=== PATIENT | male | born 1960 ===

== ENCOUNTER 2022-03-08 18:59 | Inpatient (IN) | payer OTHER ==
[2022-03-08] MEDS ORDERED: Insulin Regular 300 UNITS/3 ML VIAL ONE (19:13)
[2022-03-08] MEDS ORDERED: Sodium Bicarb 50 MEQ/50 ML VIAL ONE (19:13)
[2022-03-08 19:18] LABS: Analyzer IN Cardio ER; Base Excess (BEa) 0.2 mEq/L (-2.0 to +3.0); CO2 Tension 52.3 mmHg (35.0-45.0); Calcium, Ionized (arterial) 1.21 mmol/L (1.12-1.30); Carboxyhemoglobin (COHb) 0.1 gm% (0.0-3.0); Hemoglobin (Hb) 14.2 g/dL (14.0-18.0); O2 Tension (PaO2), arterial 83.4 mmHg (> 80.0); Potassium - ABG Lab 5.79 mmol/L (3.70-5.30); Puncture Site LBR; pH, Arterial 7.33 (7.35-7.45)
[2022-03-08 19:19] LABS: ALV-art Gradient 79.385 mmHg (0-20)
[2022-03-08 19:26] LABS: #Eosinphils 0.1 thou/uL (0.0-0.7); #Lymphocytes 1.2 thou/uL (1.20-3.40); #Neutrophils 10.4 thou/uL (1.40-6.50); %Basophils 0.3 % (0.0-1.0); %Eosinophils 0.7 % (0.0-10.0); %Lymphocytes 9.7 % (21.0-51.0); %Monocytes 7.9 % (0.0-10.0); %Neutrophils 81.4 % (42.0-75.0); Hemoglobin 13.8 g/dL (14.0-18.0); Mean Corpuscular Hemoglobin 33.1 pg (27.0-31.0); Mean Platelet Volume 7.4 fL (7.4-10.4); Platelet Count 187 thou/uL (130-400); RBC Distribution Width 12.5 % (11.5-14.5); Red Blood Cell (RBC) Count 4.17 mill/uL (4.70-6.10); White Blood Cell (WBC) Count 12.8 thou/uL (4.8-10.8)
[2022-03-08] MEDS ORDERED: DOPamine 400 MG/D5W 250 ML 250 ML ONE (19:29)
[2022-03-08 19:42] LABS: Digoxin 1.52 ng/mL (0.8-2.0)
[2022-03-08 19:43] LABS: ALT (SGPT) 83 U/L (8-55); AST (SGOT) 209 U/L (5-34); Alkaline Phosphatase 79 U/L (40-110); Anion Gap 19 mmol/L (10-20); BUN (Urea Nitrogen) 20 mg/dL (8.4-25.7); Bilirubin, Total 0.5 mg/dL (0.2-1.2); CK (CPK) 90 U/L (30-200); Calc. Creatinine Clearance 0 mL/min (70-130); Calcium 9.3 mg/dL (7.8-10.44); Carbon Dioxide 21 mmol/L (23-31); Chloride 101 mmol/L (98-107); Estimated GFR 55; Globulin 2.8 g/dL (2.4-3.5); Glucose 223 mg/dL (80-115); Lipase 39 U/L (8-78); Potassium 6.1 mmol/L (3.5-5.1); Protein, Total 6.8 g/dL (5.8-8.1); Sodium 135 mmol/L (136-145)
[2022-03-08] MEDS ORDERED: Sterile Water 10 ML ONE (20:06)
[2022-03-08] MEDS ORDERED: DOPamine 400 MG/D5W 250 ML 250 ML IVPB SCH (21:30)
[2022-03-08] MEDS ORDERED: Ondansetron PF 4 MG/2 ML Vial IVP PRN (21:30)
[2022-03-08] MEDS ORDERED: Ondansetron ODT 4 MG TAB SL PRN (21:30)
[2022-03-08] MEDS ORDERED: Dextrose 5% in Water 1,000 ML IV PRN (21:53)
[2022-03-08] MEDS ORDERED: Dextrose 50% Abboject 50 ML SYRINGE SLOW IVP PRN (21:53)
[2022-03-08] MEDS ORDERED: HumaLOG 300 UNITS/3 ML VIAL SC PRN (21:53)
[2022-03-08] MEDS ORDERED: Lorazepam 2 MG/ML VIAL IM PRN (22:25)
[2022-03-08] MEDS ORDERED: Acetaminophen 325 MG TAB PO PRN (22:25)
[2022-03-08] MEDS ORDERED: Lorazepam 1 MG TAB PO PRN (22:25)
[2022-03-08] MEDS ORDERED: Acetaminophen 650 MG Suppository PR PRN (22:25)
[2022-03-08] MEDS ORDERED: Electrolyte Replacement Protocol 1 EACH FS SCH (22:30)
[2022-03-08 22:50] LABS: SARS-CoV-2 NAA Rapid Test Not Detected (NotDetected)
[2022-03-08 23:15] LABS: Phosphorus 3.6 mg/dL (2.3-4.7)
[2022-03-08 23:28] LABS: Troponin I Less than 0.010 ng/mL (< 0.028)
[2022-03-08] MEDS: Thiamine HCl 200 MG/2 ML VIAL SLOW IVP SCH (23:29)
[2022-03-08] MEDS: Lorazepam 1 MG TAB PO SCH (23:30)
[2022-03-08] MEDS ORDERED: DOPamine 400 MG/D5W 250 ML 250 ML IVPB PRN (23:30)
[2022-03-08 23:32] LABS: ALT (SGPT) 70 U/L (8-55); AST (SGOT) 122 U/L (5-34); Albumin 3.8 g/dL (3.4-4.8); Alkaline Phosphatase 79 U/L (40-110); Anion Gap 15 mmol/L (10-20); BUN (Urea Nitrogen) 21 mg/dL (8.4-25.7); Bilirubin, Total 0.5 mg/dL (0.2-1.2); Calc. Creatinine Clearance 0 mL/min (70-130); Calcium 10.2 mg/dL (7.8-10.44); Carbon Dioxide 27 mmol/L (23-31); Chloride 99 mmol/L (98-107); Estimated GFR 66; Globulin 2.6 g/dL (2.4-3.5); Glucose 202 mg/dL (80-115); Magnesium 2.2 mg/dL (1.6-2.6); Potassium 4.9 mmol/L (3.5-5.1); Protein, Total 6.4 g/dL (5.8-8.1); Sodium 136 mmol/L (136-145)
[2022-03-09 00:57] LABS: Bacteria/HPF None Seen HPF (None Seen); Bilirubin Negative (Negative); Blood, Urine Negative (Negative); Clarity Clear (Clear); Glucose, Urine (Dipstick) 200 mg/dL (Negative); Ketone, Urine Negative (Negative); Leukocyte Negative Leu/uL (Negative); Nitrite Negative (Negative); Protein, Urine (Dipstick) Negative (Neg-Trace); RBC/HPF 0-3 HPF (0-3); Specific Gravity, Urine 1.011 (1.002-1.036); Squamous Epithelial 0-3 HPF (0-3); Urobilinogen Normal mg/dL (Less than 2); WBC/HPF 0-3 HPF (0-3); pH, Urine 5.5 (5.0-9.0)
[2022-03-09 04:23] LABS: Anion Gap 16 mmol/L (10-20); BUN (Urea Nitrogen) 21 mg/dL (8.4-25.7); Calc. Creatinine Clearance 123 mL/min (70-130); Calcium 9.6 mg/dL (7.8-10.44); Carbon Dioxide 25 mmol/L (23-31); Chloride 98 mmol/L (98-107); Estimated GFR 89; Glucose 148 mg/dL (80-115); Potassium 4.5 mmol/L (3.5-5.1); Sodium 134 mmol/L (136-145)
[2022-03-09] MEDS: Lorazepam 1 MG TAB PO SCH ×4 (04:38→21:08)
[2022-03-09 04:41] LABS: #Lymphocytes 1.2 thou/uL (1.20-3.40); #Monocytes 0.8 thou/uL (0.11-0.59); #Neutrophils 8.2 thou/uL (1.40-6.50); %Basophils 0.3 % (0.0-1.0); %Eosinophils 0.2 % (0.0-10.0); %Lymphocytes 11.6 % (21.0-51.0); %Monocytes 7.5 % (0.0-10.0); %Neutrophils 80.4 % (42.0-75.0); Hemoglobin 13.6 g/dL (14.0-18.0); Mean Corpuscular HGB CONC 34.5 g/dL (32.0-36.0); Mean Corpuscular Hemoglobin 34.9 pg (27.0-31.0); Mean Platelet Volume 7.6 fL (7.4-10.4); Platelet Count 174 thou/uL (130-400); RBC Distribution Width 12.6 % (11.5-14.5); Red Blood Cell (RBC) Count 3.91 mill/uL (4.70-6.10); White Blood Cell (WBC) Count 10.2 thou/uL (4.8-10.8)
[2022-03-09] MEDS: Sodium Chloride 0.9% 1,000 ML IV SCH ×3 (04:51→21:10)
[2022-03-09] MEDS: Folic Acid 1 MG TAB PO SCH (08:58)
[2022-03-09] MEDS: Multivit, Therapeutic 1 TAB PO SCH (08:58)
[2022-03-09 09:55] LABS: Amphetamine Not Detected (NotDetected); Barbiturates Screen Not Detected (NotDetected); Benzodiazepine Screen Detected (NotDetected); Cocaine Metabolite Screen Not Detected (NotDetected); Methadone Not Detected (NotDetected); Methamphetamine Not Detected (NotDetected); Opiate Screen Not Detected (NotDetected); Oxycodone Screen Not Detected (NotDetected); Phencyclidine (PCP) Not Detected (NotDetected); THC/Cannabinoid Screen Not Detected (NotDetected); Tricyclic Screen Not Detected (NotDetected)
[2022-03-09] MEDS: HumaLOG 300 UNITS/3 ML VIAL SC PRN (16:37)
[2022-03-09] MEDS: Famotidine 20 MG TAB PO SCH (21:08)
[2022-03-09] MEDS: Thiamine HCl 200 MG/2 ML VIAL SLOW IVP SCH (21:16)
[2022-03-09] MEDS ORDERED: Lorazepam 1 MG TAB PO PRN (22:26)
[2022-03-10 04:06] LABS: #Eosinphils 0.2 thou/uL (0.0-0.7); #Monocytes 0.6 thou/uL (0.11-0.59); #Neutrophils 3.3 thou/uL (1.40-6.50); %Eosinophils 2.7 % (0.0-10.0); %Lymphocytes 33.4 % (21.0-51.0); %Monocytes 9.2 % (0.0-10.0); %Neutrophils 54.7 % (42.0-75.0); Hemoglobin 11.7 g/dL (14.0-18.0); Mean Corpuscular HGB CONC 33.1 g/dL (32.0-36.0); Mean Corpuscular Hemoglobin 33.6 pg (27.0-31.0); Mean Platelet Volume 7.4 fL (7.4-10.4); Platelet Count 150 thou/uL (130-400); RBC Distribution Width 12.6 % (11.5-14.5); Red Blood Cell (RBC) Count 3.49 mill/uL (4.70-6.10)
[2022-03-10 04:27] LABS: Anion Gap 12 mmol/L (10-20); BUN (Urea Nitrogen) 13 mg/dL (8.4-25.7); Calc. Creatinine Clearance 124 mL/min (70-130); Calcium 8.9 mg/dL (7.8-10.44); Carbon Dioxide 28 mmol/L (23-31); Chloride 102 mmol/L (98-107); Estimated GFR 91; Glucose 147 mg/dL (80-115); Magnesium 1.7 mg/dL (1.6-2.6); Potassium 3.8 mmol/L (3.5-5.1); Sodium 138 mmol/L (136-145)
[2022-03-10] MEDS: Sodium Chloride 0.9% 1,000 ML IV SCH ×2 (04:32→17:44)
[2022-03-10] MEDS: Lorazepam 1 MG TAB PO SCH ×3 (04:32→09:46)
[2022-03-10] MEDS ORDERED: Magnesium 2 GM/50 ML(in water) 2 GM in Premix Bag 1 BAG IVPB SCH (08:00)
[2022-03-10] MEDS: Famotidine 20 MG TAB PO SCH ×2 (09:42→20:42)
[2022-03-10] MEDS: Multivit, Therapeutic 1 TAB PO SCH (09:42)
[2022-03-10] MEDS: Folic Acid 1 MG TAB PO SCH (09:42)
[2022-03-10] MEDS: Rivaroxaban 10 MG TAB PO SCH (09:42)
[2022-03-10] MEDS ORDERED: Carvedilol 6.25 MG TAB PO SCH (10:45)
[2022-03-10] MEDS ORDERED: Lorazepam 1 MG TAB PO PRN ×2 (13:53→22:26)
[2022-03-10] MEDS ORDERED: Lorazepam 0.5 MG TAB PO PRN (13:54)
[2022-03-10] MEDS: Carvedilol 6.25 MG TAB PO SCH (17:45)
[2022-03-10] MEDS: Thiamine HCl 200 MG/2 ML VIAL SLOW IVP SCH (21:55)
[2022-03-10] MEDS ORDERED: Lorazepam 0.5 MG TAB PO SCH (22:30)
[2022-03-11] MEDS: Sodium Chloride 0.9% 1,000 ML IV SCH ×3 (01:30→10:51)
[2022-03-11 04:47] LABS: #Eosinphils 0.2 thou/uL (0.0-0.7); #Monocytes 0.7 thou/uL (0.11-0.59); #Neutrophils 3.4 thou/uL (1.40-6.50); %Basophils 0.3 % (0.0-1.0); %Eosinophils 3.3 % (0.0-10.0); %Lymphocytes 31.3 % (21.0-51.0); %Neutrophils 54.1 % (42.0-75.0); Hemoglobin 11.7 g/dL (14.0-18.0); Mean Corpuscular HGB CONC 32.5 g/dL (32.0-36.0); Mean Corpuscular Hemoglobin 33.3 pg (27.0-31.0); Mean Platelet Volume 7.5 fL (7.4-10.4); Platelet Count 141 thou/uL (130-400); RBC Distribution Width 12.5 % (11.5-14.5); Red Blood Cell (RBC) Count 3.53 mill/uL (4.70-6.10); White Blood Cell (WBC) Count 6.3 thou/uL (4.8-10.8)
[2022-03-11 05:13] LABS: Anion Gap 11 mmol/L (10-20); BUN (Urea Nitrogen) 9 mg/dL (8.4-25.7); Calc. Creatinine Clearance 150 mL/min (70-130); Calcium 9.2 mg/dL (7.8-10.44); Carbon Dioxide 28 mmol/L (23-31); Chloride 104 mmol/L (98-107); Estimated GFR 100; Glucose 142 mg/dL (80-115); Potassium 3.6 mmol/L (3.5-5.1); Sodium 139 mmol/L (136-145)
[2022-03-11] MEDS: Rivaroxaban 10 MG TAB PO SCH (08:49)
[2022-03-11] MEDS: Folic Acid 1 MG TAB PO SCH (08:49)
[2022-03-11] MEDS: Multivit, Therapeutic 1 TAB PO SCH (08:50)
[2022-03-11] MEDS: Famotidine 20 MG TAB PO SCH ×2 (08:50→20:21)
[2022-03-11] MEDS: Carvedilol 6.25 MG TAB PO SCH ×2 (08:51→16:43)
[2022-03-11] MEDS ORDERED: Carvedilol 6.25 MG TAB PO SCH (10:00)
[2022-03-11] MEDS: HumaLOG 300 UNITS/3 ML VIAL SC PRN (12:49)
[2022-03-11] MEDS: Thiamine 100 MG TAB PO SCH (20:21)
[2022-03-11] MEDS ORDERED: Lorazepam 0.5 MG TAB PO PRN (22:26)
[2022-03-12 04:48] LABS: #Eosinphils 0.2 thou/uL (0.0-0.7); #Monocytes 0.7 thou/uL (0.11-0.59); %Basophils 0.4 % (0.0-1.0); %Eosinophils 2.3 % (0.0-10.0); %Lymphocytes 28.4 % (21.0-51.0); %Monocytes 10.4 % (0.0-10.0); %Neutrophils 58.5 % (42.0-75.0); Mean Corpuscular HGB CONC 31.5 g/dL (32.0-36.0); Mean Corpuscular Hemoglobin 32.2 pg (27.0-31.0); Mean Platelet Volume 7.7 fL (7.4-10.4); Platelet Count 146 thou/uL (130-400); RBC Distribution Width 12.5 % (11.5-14.5); Red Blood Cell (RBC) Count 3.74 mill/uL (4.70-6.10); White Blood Cell (WBC) Count 6.9 thou/uL (4.8-10.8)
[2022-03-12 05:04] LABS: Anion Gap 12 mmol/L (10-20); BUN (Urea Nitrogen) 11 mg/dL (8.4-25.7); Calc. Creatinine Clearance 135 mL/min (70-130); Calcium 9.4 mg/dL (7.8-10.44); Carbon Dioxide 28 mmol/L (23-31); Chloride 102 mmol/L (98-107); Estimated GFR 98; Glucose 141 mg/dL (80-115); Potassium 3.7 mmol/L (3.5-5.1); Sodium 138 mmol/L (136-145)
[2022-03-12] MEDS: Folic Acid 1 MG TAB PO SCH (09:21)
[2022-03-12] MEDS: Rivaroxaban 10 MG TAB PO SCH (09:21)
[2022-03-12] MEDS: Famotidine 20 MG TAB PO SCH ×2 (09:21→20:27)
[2022-03-12] MEDS: Multivit, Therapeutic 1 TAB PO SCH (09:21)
[2022-03-12] MEDS: Carvedilol 6.25 MG TAB PO SCH ×2 (09:25→16:40)
[2022-03-12] MEDS: HumaLOG 300 UNITS/3 ML VIAL SC PRN (11:56)
[2022-03-12] MEDS ORDERED: Carvedilol 6.25 MG TAB PO SCH ×2 (17:00)
[2022-03-12] MEDS: Thiamine 100 MG TAB PO SCH (20:28)
[2022-03-13 04:47] LABS: Magnesium 1.6 mg/dL (1.6-2.6); Phosphorus 3.9 mg/dL (2.3-4.7); Potassium 3.8 mmol/L (3.5-5.1)
[2022-03-13] MEDS ORDERED: Magnesium 2 GM/50 ML(in water) 2 GM in Premix Bag 1 BAG IVPB SCH (08:00)
[2022-03-13] MEDS: Carvedilol 6.25 MG TAB PO SCH ×2 (10:11→16:07)
[2022-03-13] MEDS: Multivit, Therapeutic 1 TAB PO SCH (10:12)
[2022-03-13] MEDS: Rivaroxaban 10 MG TAB PO SCH (10:12)
[2022-03-13] MEDS: Folic Acid 1 MG TAB PO SCH (10:12)
[2022-03-13] MEDS: Famotidine 20 MG TAB PO SCH ×2 (10:12→20:42)
[2022-03-13] MEDS: HumaLOG 300 UNITS/3 ML VIAL SC PRN (11:48)
[2022-03-13] MEDS: Thiamine 100 MG TAB PO SCH (20:43)
[2022-03-14] MEDS: Rivaroxaban 10 MG TAB PO SCH (09:58)
[2022-03-14] MEDS: Carvedilol 6.25 MG TAB PO SCH (09:59)
[2022-03-14] MEDS: Multivit, Therapeutic 1 TAB PO SCH (09:59)
[2022-03-14] MEDS: Folic Acid 1 MG TAB PO SCH (09:59)
[2022-03-14] MEDS: Famotidine 20 MG TAB PO SCH (09:59)
[2022-03-14] MEDS ORDERED: Diltiazem 125 MG in Sodium Chloride 0.9% 100 ML IVPB SCH (12:45)
[2022-03-14 12:48] VITALS: BP 127/72; TEMP 97.2
[2022-03-14] MEDS ORDERED: Digoxin 0.25 MG TAB PO SCH (13:15)
[2022-03-15] MEDS ORDERED: Digoxin 0.25 MG TAB PO SCH (09:00)
== END 2022-03-14 13:28 | disposition left against medical advice (07) | DRG 641 ==
LOC: ERS 18:59 → CCU 20:42 → 2NO 03-09 17:57
PROVIDERS: ADMIT Internal Medicine; ATTEND Internal Medicine
PROC: HZ2ZZZZ Detoxification Services for Substance Abuse Treatment (ICD-10-PCS; principal; 2022-03-08)
DX: E87.5 Hyperkalemia (principal); I13.0 Hypertensive heart and chronic kidney disease with heart failure and stage 1 through stage 4 chronic kidney disease, or unspecified chronic kidney disease; N17.9 Acute kidney failure, unspecified; I48.19 Other persistent atrial fibrillation; F10.139 Alcohol abuse with withdrawal, unspecified; I50.32 Chronic diastolic (congestive) heart failure; Z20.822 Contact with and (suspected) exposure to COVID-19; E78.00 Pure hypercholesterolemia, unspecified; N18.9 Chronic kidney disease, unspecified; I45.10 Unspecified right bundle-branch block; F17.210 Nicotine dependence, cigarettes, uncomplicated; D72.829 Elevated white blood cell count, unspecified; R74.01 Elevation of levels of liver transaminase levels; T39.395A Adverse effect of other nonsteroidal anti-inflammatory drugs [NSAID], initial encounter; T46.4X5A Adverse effect of angiotensin-converting-enzyme inhibitors, initial encounter; E87.1 Hypo-osmolality and hyponatremia; Z53.29 Procedure and treatment not carried out because of patient's decision for other reasons; Z79.01 Long term (current) use of anticoagulants; Z79.02 Long term (current) use of antithrombotics/antiplatelets; Z79.899 Other long term (current) drug therapy
CPT/HCPCS: 36415; 36416; 71045; 76705; 80048; 80053; 80162; 80306; 81001; 82550; 82805; 83690; 83735; 83880; 84100; 84132; 84443; 84484; 85025; 93005; 93010; 93306; 96374; 96375; J1162; J1265; J1610; J1815; J3411; J3475; J7050; U0002